=== PATIENT | male | born 1995 | race Caucasian/White ===

== ENCOUNTER 2022-02-14 13:09 | Emergency (ER) | payer BC, SELFPAY ==
--- NOTE | ~2022-02-14 | XR_ITS ---
EXAMINATION: XR chest 2V 02/14/2022 13:24 INDICATION: Chest pain PROCEDURE: 2 view chest COMPARISON: 09/28/2008 FINDINGS: The lungs are clear. The cardiomediastinal silhouette is within normal limits. There are no pleural effusions. There is no pneumothorax suspected. IMPRESSION: 1: NO ACUTE CARDIOPULMONARY DISEASE. Reviewed, dictated and finalized at location A.
--- NOTE | ~2022-02-14 | XR_ITS ---
EXAM: XR thoracic spine 3V DATE: 02/14/2022 16:48 HISTORY: BACK PAIN, NO KNOWN INJURY BUT THINKS FROM WRESTLING . COMPARISON: None available. FINDINGS: Vertebral body alignment intact. Vertebral body heights preserved. No disc space narrowing . No traumatic malalignment or fracture. Visualized lung parenchyma is clear. IMPRESSION: Normal thoracic spine radiograph findings. Reviewed, dictated and finalized at location K.
[2022-02-14 13:12] VITALS: BP 120/76; PULSE 73; RESP 18; TEMP 36.7; O2SAT 100
--- NOTE | 2022-02-14 13:14 | ECG_ITS ---
Measurements Intervals [place] Rate: 72 P: 83 ME: 144 QRS: 95 QRSD: 94 T: 69 QT: 368 QTc: 405 Interpretive Statements SINUS RHYTHM BORDERLINE RIGHT AXIS DEVIATION PATTERN CONSISTENT WITH PULMONARY DISEASE BORDERLINE ECG NO PREVIOUS ECG AVAILABLE FOR COMPARISON Electronically Signed On 02-14-2022 14:20:34 CDT by Edil Layton M.D.
[2022-02-14 13:43] LABS: Alanine Aminotransferase 14 U/L (6-50); Albumin Level 4.6 g/dL (3.5-5.1); Alkaline Phosphatase 63 U/L (38-126); Anion Gap 10 mmol/L (8-16); Aspartate Amino Transferase 26 U/L (17-59); Bilirubin,Total 0.8 mg/dL (0.2-1.3); Blood Urea Nitrogen 13 mg/dL (9-20); Calcium 9.5 mg/dL (8.4-10.2); Carbon Dioxide 28 mmol/L (22-30); Chloride 99 mmol/L (98-107); Estimated CRCL calculation 95 ml/min; Estimated Glomerular Filt Rate > 60; Glucose 83 mg/dL (65-110); Lipase 59 U/L (23-300); Potassium 3.7 mmol/L (3.4-5.0); Sodium 137 mmol/L (137-145)
[2022-02-14 13:49] LABS: INR 1.1
[2022-02-14 13:50] LABS: Partial Thromboplastin Time 30.7 SECONDS (22.3-36.8)
[2022-02-14 13:54] LABS: Troponin I < 0.012 ng/mL (0.000-0.034)
[2022-02-14 14:03] LABS: Basophils Percent Auto 0.5 % (0.2-1.2); Eosinophils Absolute Auto 0.3 K/mm3 (0-0.3); Hematocrit 42.9 % (42.0-52.0); Hemoglobin 14.9 g/dL (14.0-18.0); Immature Granulocyte Absolute 0.03 K/mm3 (0.00-0.031); Immature Granulocyte Percent A 0.4 % (0-0.5); Lymphocytes Percent Auto 20.6 % (18.3-44.2); Mean Corpuscular HGB Conc 34.7 g/dl (32-36); Mean Corpuscular Hemoglobin 30.3 pg (26-34); Mean Corpuscular Volume 87.2 fl (80-100); Mean Platelet Volume 10.7 fl (7.4-10.4); Monocytes Absolute Auto 0.6 K/mm3 (0.1-0.6); Monocytes Percent Auto 7.5 % (2.6-8.5); Neutrophils Absolute Auto 5.5 K/mm3 (1.3-6.7); Platelet Count Result 271 k/mm3 (150-375); Red Blood Count 4.92 M/mm3 (4.6-6.20); Red Cell Distribution Width 12.4 % (11.5-14.5); White Blood Count 8.3 K/mm3 (4.5-10.0)
--- NOTE | 2022-02-14 16:26 | ED.CHESTPAIN ---
HPI - Chest Pain General Chief Complaint: Chest Pain Stated Complaint: shoulder and chest pain Time Seen by Provider: 02/14/22 16:16 Source: patient Mode of arrival: ambulatory Limitations: no limitations History of Present Illness HPI narrative: This is a 26 year old male that presents to the ER for chest pain and back pain present over the last couple of weeks. Reports the pain is worse with movement and relieved with rest. He has been taking ibuprofen at home with some relief. Denies any certain injury or trauma. 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 Denies decreased range of motion, numbness, or shortness of breath. Related Data Allergies Allergy/AdvReac Type Severity Reaction Status Date / Time No Known Allergies Allergy Unverified 09/02/17 01:05 Review of Systems Review of Systems: CONSTITUTIONAL: Denies fever CARDIOVASCULAR: Reports chest pain. Denies edema. RESPIRATORY: Denies dyspnea. All systems reviewed & are unremarkable except as noted in HPI and below PMFSH Past Medical History Medical History (Updated 02/14/22 @ 17:49 by Alisson Hallman PA-C) No active medical problems Family History Family History (Updated 03/13/14 @ 07:13 by DOCTOR UNKNOWN) Mother Hypertension Sibling Asthma Social History Social History Smoking status: Never smoker Alcohol intake: never Exam Narrative: GENERAL: Well-appearing, well-nourished, and in no acute distress. HEAD: Normocephalic, atraumatic. EYES: EOMI. CHEST: Clear to auscultation. No respiratory distress. No wheezes rales or rhonchi. Tender to palpation of the anterior chest wall HEART: Regular rate and rhythm. No murmur heard. Normal peripheral pulses. BACK: Tenderness to palpation of the thoracic paraspinal musculature bilaterally EXTREMITIES: Normal range of motion. No edema. SKIN: Warm, dry, no rash. NEURO: No focal deficits. Alert and oriented x3. PSYCH: Normal mood and affect Course Vital Signs Vital signs: Vital Signs Temperature 98.0 F 02/14/22 13:12 Pulse Rate 73 02/14/22 13:12 Respiratory Rate 18 02/14/22 13:12 Blood Pressure 120/76 02/14/22 13:12 Pulse Oximetry 100 02/14/22 13:12 Oxygen Delivery Room Air 02/14/22 13:12 Temperature 98.0 F 02/14/22 13:12 Pulse Rate 63 02/14/22 17:10 Respiratory Rate 16 02/14/22 17:10 Blood Pressure 128/85 02/14/22 17:10 Pulse Oximetry 100 02/14/22 17:10 Oxygen Delivery Room Air 02/14/22 13:12 MDM - Chest Pain MDM Narrative Medical decision making narrative: Patient presents to the ER for chest pain and back pain. Ongoing over the last couple of weeks. Patient's vitals are stable. He is neurovascularly intact. CBC and metabolic panel without concerning findings. Lipase is normal. Baseline and 3-hour troponin is negative. EKG without acute ST changes. D-dimer is not elevated. Chest x-ray without acute cardiopulmonary abnormality. Thoracic spine x-ray without concerning findings. Patient was updated on case findings. His heart score is a 1. He is stable and felt appropriate for further outpatient evaluation. He was given warnings to return to the ER Lab Data Attestation: I reviewed the patient's lab results. Result diagrams: 02/14/22 13:26 02/14/22 13:26 Labs: Lab Results 02/14/22 02/14/22 02/14/22 Range/Units 13:26 13:26 13:26 WBC 8.3 (4.5-10.0) K/mm3 RBC 4.92 (4.6-6.20) M/mm3 Hgb 14.9 (14.0-18.0) g/dL Hct 42.9 (42.0-52.0) % MCV 87.2 (80-100) fl MCH 30.3 (26-34) pg MCHC 34.7 (32-36) g/dl RDW 12.4 (11.5-14.5) % Plt Count 271 (150-375) k/mm3 MPV 10.7 H (7.4-10.4) fl Immature Gran % (Auto) 0.4 (0-0.5) % Neut % (Auto) 67.0 (45.5-73.1) % Lymph % (Auto) 20.6 (18.3-44.2) % [place] % (Auto) 7.5 (2.6-8.5) % Eos % (Auto) 4.0 (0-4.4) % Baso % (Auto) 0.5 (0.2-1.2) % Lymph # (Auto) 1.70 (0.9-3.2) K/mm3 [place]
[2022-02-14 16:57] LABS: Troponin I < 0.012 ng/mL (0.000-0.034)
[2022-02-14 16:57] LABS: D Dimer < 0.27 ug/mL (<0.48)
[2022-02-14 17:10] VITALS: BP 128/85; PULSE 63; RESP 16; O2SAT 100
[2022-02-14] MEDS: diazePAM INJ (*CRX) 10 MG/2 ML SYRINGE 5 MG IV PUSH (17:12)
[2022-02-14 17:35] VITALS: TEMP 36.7
[2022-02-14 18:18] VITALS: BP 123/80; PULSE 56; RESP 18; O2SAT 100
== END 2022-02-14 18:20 | disposition home or self-care (01) ==
PROVIDERS: Physician Assistant; Emergency Provider Emergency Medicine
DX: R07.9 Chest pain, unspecified (principal); R94.31 Abnormal electrocardiogram [ECG] [EKG]
CPT/HCPCS: 36415; 71046; 72072; 80053; 83690; 84484; 85025; 85380; 85610; 85730; 93005; 96374; 96375; 99284; J0131; J3360

== ENCOUNTER 2024-10-07 15:08 | Emergency (ER) | payer OTHER, SELFPAY ==
--- NOTE | ~2024-10-07 | XR_ITS ---
XR shoulder RT min 2V Ordering provider: GABRIELA Degroot History: . fall 2 days ago. Pain to distal clav, ant shoulder . Comparison: None. FINDINGS: BONES: No acute fracture or dislocation. JOINT SPACES: The acromioclavicular joint is normal. The glenohumeral joint is normal. SOFT TISSUES: Normal. IMPRESSION: No acute osseous abnormality right shoulder. Reviewed, dictated and finalized at location A.
[2024-10-07 15:20] VITALS: BP 127/82; PULSE 62; RESP 20; TEMP 37.1; O2SAT 100
--- NOTE | 2024-10-07 15:45 | ED.UPPEXIN ---
HPI - Extremity Injury (Upper) General Chief Complaint: Extremity Injury, Upper Stated Complaint: right shoulder pain Time Seen by Provider: 10/07/24 15:38 Source: patient and RN notes reviewed Mode of arrival: ambulatory Limitations: no limitations History of Present Illness HPI narrative: Patient presents today complaining of a 2 day history of right anterior rib pain. 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 Denies numbness or tingling in the arm or hand. Pain increases with movement. He has been taking ibuprofen and applying Biofreeze without much relief. Currently rates his pain 01/23. Related Data Home Medications ?Medication ?Instructions ?Recorded ?Confirmed ?Last Taken ?Type ibuprofen 800 mg tablet mg 10/07/24 Unknown History Allergies Allergy/AdvReac Type Severity Reaction Status Date / Time No Known Allergies Allergy Unverified 10/07/24 15:32 Review of Systems Review of Systems: CONSTITUTIONAL: Denies body aches, fever, chills, or sweats. EYES: Denies visual changes, redness, or discharge. ENT: Denies rhinorrhea, congestion, sore throat, or otalgia. CARDIOVASCULAR: Denies chest pain, palpitations, or edema. RESPIRATORY: Denies cough or dyspnea. GASTROINTESTINAL: Denies abdominal pain, nausea, vomiting, or diarrhea. GENITOURINARY: Denies dysuria or hematuria. SKIN: Denies rash, itching, or wounds. MUSCULOSKELETAL: + right shoulder pain. NEUROLOGIC: Denies headache, numbness, tingling, or weakness. PSYCH: Denies depression or anxiety. [facility] Past Medical History Medical History No active medical problems Family History Family History Mother Hypertension Sibling Asthma Social History Social History Smoking status: Never smoker Alcohol intake: never Comments At time of signature, I have reviewed and agree with nursing past medical, surgical, social and family history unless otherwise noted. Please see nursing chart for further information. There is no relevant family history pertinent to the presenting complaint Exam Narrative: GENERAL: Well-appearing, well-nourished, and in no acute distress. HEAD: Normocephalic, atraumatic. EYES: EOMI. No redness or drainage. Conjunctivae normal. ENT: Mucous membranes pink and moist. NECK: Normal AROM. CHEST: No respiratory distress. EXTREMITIES: Right shoulder: Tenderness to the anterior shoulder that extends to the lateral clavicle. No deformity noted. Decreased range of motion up to approximately 90? due to pain. Pain with internal and external rotation as well. Distal sensation intact. Capillary refill normal. Radial pulse normal. SKIN: Warm, dry, no rash. Capillary refill normal. Normal skin turgor. NEURO: No focal deficits. Alert and oriented x3. Gait steady. PSYCH: Normal affect. No signs of depression or anxiety. Course Course Level of Care: Express Care Visit Vital Signs Vital signs: Vital Signs Temperature 98.7 F 10/07/24 15:20 Pulse Rate 62 10/07/24 15:20 Respiratory Rate 20 10/07/24 15:20 Blood Pressure 127/82 10/07/24 15:20 Pulse Oximetry 100 10/07/24 15:20 Oxygen Delivery Room Air 10/07/24 15:20 Temperature 98.7 F 10/07/24 15:20 Pulse Rate 62 10/07/24 15:20 Respiratory Rate 20 10/07/24 15:20 Blood Pressure 127/82 10/07/24 15:20 Pulse Oximetry 100 10/07/24 15:20 Oxygen Delivery Room Air 10/07/24 15:20 Reviewed MDM - Extremity Injury (Upper) MDM Narrative Medical decision making narrative: X-ray is negative. Recommend orthopedic follow-up for further evaluation and treatment if pain persists after 1 week of conservative treatment. Patient agrees with plan. Anticipatory guidance given. Differential Diagnosis Differential diagnosis: Likely fracture of humerus, fracture of clavicle and other (Rotator cuff tear, shoulder strain) Imaging Data Radiologist's impression: ITS Impressions Shoulder X-Ray 10/07/24 15:51 IMPRESSION: No acute osseous abnormality right shoulder. Critical Care Time Critical Care Time Critical Care Time: No Discharge Plan Discharge Clinical Impression: Injury of right shoulder Qualifiers: Encounter type: initial encounter Qualified Code(s): S49.91XA - Unspecified injury of right shoulder and upper arm, initial encounter Patient Disposition: Home, Self-Care Condition: Stable Instructions: Shoulder Sprain (ED) Additional Instructions: Your x-ray is negative today. Take ibuprofen or Tylenol for pain. Gently move the shoulder to keep range of motion. If your symptoms persist past 1 week, please follow-up with orthopedics for further evaluation and treatment. Your blood pressure was elevated above 120/80 today at Urgent Care. This puts you above the threshold for follow up. Please schedule a followup visit with your personal physician as soon as possible, for further evaluation and treatment. Even blood pressure exceeding 120/80 may indicate pre-hypertension. Patient Language: [place] Islander Prescriptions: No Action ibuprofen 800 mg tablet Follow-up/Referrals: Gil Jasso MD [Physician] - PHYSICIAN,BIOMEDICAL TECHNICIAN [Primary Care Provider] - Time of Disposition: 16:16
== END 2024-10-07 16:19 | disposition home or self-care (01) ==
PROVIDERS: Emergency Provider Nurse Practitioner
DX: S49.91XA Unspecified injury of right shoulder and upper arm, initial encounter (principal); W03.XXXA Other fall on same level due to collision with another person, initial encounter; Y93.72 Activity, wrestling
CPT/HCPCS: 73030; 99213; G0463

== ENCOUNTER 2025-07-16 14:39 | Emergency (ER) | payer OTHER, SELFPAY ==
--- NOTE | ~2025-07-16 | CT_ITS ---
EXAMINATION: CT diagnostic chest wo con DATE: 07/16/2025 16:22 INDICATION: R rib pain x1week s/p hit with concrete TECHNIQUE: Computed tomography (CT) of the chest was performed without intravenous contrast. Additional 3D reconstructions utilizing coronal maximum intensity projection (MIP) were performed. Automated exposure control and iterative reconstruction technique were employed. The dose-length product was 19 4.59 mGy-cm. COMPARISON: Right rib pain post trauma one week prior FINDINGS: Lungs are clear with pneumonia, pulmonary edema or other pulmonary infiltrates. No pleural effusion or pneumothorax. Heart size is normal. No pericardial effusion. Thoracic aorta is normal in caliber. No pathologically enlarged thoracic lymphadenopathy. Visualized upper abdomen is unremarkable. 10 degrees thoracic dextrocurvature with mild spondylosis. No rib fractures or other acute osseous abnormality. IMPRESSION: 1. No fracture or acute cardiopulmonary disease. Reviewed, dictated and finalized at location A. ENSATION COORDINATOR
--- OUTSIDE RECORDS SUMMARY | 2025-07-16 14:40 | XMS_ITS | Clinical Summary ---
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 Gender Identity Not on file Sexual Orientation Not on file Plan of Treatment Health Maintenance Due Date Last Done Comments Hepatitis C Virus (HCV) Screening 1996 Influenza Immunization (#1) 2025 04/25/2012 SARS-COV-2 Immunization ( season) 2025 03/27/2021, 03/06/2021 Respiratory Syncytial Virus (RSV) Immunization (Adult) (1 - 1-dose 75+ series) 2071 Hepatitis B Immunization Completed 997, 1996, 1996 DTaP/Tdap/Td Immunization Discontinued 2010, 03/09/2009, 11/30/2000, Additional history exists TdaP Immunization Completed 02/28/2011, 03/09/2009 Human Papillomavirus (HPV) Immunization Completed 04/25/2012, 02/28/2011 Meningococcal Immunization (ACWY) Completed 01/27/2015, 03/09/2009 Pneumococcal Immunization Combined Aged Out No longer eligible based on patient's age to complete this topic Rotavirus Immunization Aged Out No lo nger eligible based on patient's age to complete this topic [place] [address]
[2025-07-16 14:46] VITALS: BP 142/92; PULSE 86; RESP 18; TEMP 36.5; O2SAT 100
--- OUTSIDE RECORDS SUMMARY | 2025-07-16 16:42 | XMS_ITS | Clinical Summary ---
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
--- NOTE | 2025-07-16 17:07 | ED_ITS ---
HPI - General Adult General Chief complaint: Unspecified Stated complaint: R rib pain Time Seen by Provider: 07/16/25 17:06 Source: patient Mode of arrival: ambulatory Limitations: no limitations History of Present Illness HPI narrative: Patient is a 30-year-old male who presents the ED with report of right-sided rib pain. Patient reports he was working last week and hit his right-sided anterior ribs against a concrete structure. Complains of pain throughout his right anterior ribs since then. Worse with movement, coughing, sneezing. Has occasionally been taking Tylenol for the pain. Denies feeling short of breath, but does have pain with deep inspiration. Denies abdominal pain Related Data Home Medications ?Medication ?Instructions ?Recorded ?Confirmed ?Last Taken ?Type ibuprofen 800 mg tablet mg 10/07/24 Unknown History Allergies Allergy/AdvReac Type Severity Reaction Status Date / Time No Known Allergies Allergy Verified 07/16/25 14:48 Review of Systems Review of Systems: All systems reviewed & are unremarkable except as noted in HPI. All systems reviewed & are unremarkable except as noted in HPI and below PMFSH Past Medical History Medical History No active medical problems Family History Family History Mother Hypertension Sibling Asthma Social History Social History Smoking status: Never smoker Alcohol intake: never Exam Narrative: GENERAL: Well appearing, thin, non-toxic, in no acute distress. HEAD: Normocephalic, atraumatic. RESPIRATORY: Airway patent, respirations nonlabored. Clear to auscultation bilaterally, no rales, rhonchi, wheezing. CARDIOVASCULAR: Regular rate and rhythm without murmurs, rubs, or gallops. ABDOMINAL: Soft, no significant focal tenderness, nondistended. Normoactive BS. MUSCULOSKELETAL: Moves all extremities. No gross deformities. TTP throughout R inferior anterior chest wall w/o ecchymosis, palpable deformities. SKIN: Warm, dry, normal color. NEURO: A&O X3. Speech clear. No ataxic movements. PSYCHIATRIC: Appropriate mood and affect. Normal interaction. Course Vital Signs Vital signs: Vital Signs Temperature 97.7 F 07/16/25 14:46 Pulse Rate 86 07/16/25 14:46 Respiratory Rate 18 07/16/25 14:46 Blood Pressure 142/92 H 07/16/25 14:46 Pulse Oximetry 100 07/16/25 14:46 Oxygen Delivery Room Air 07/16/25 14:46 Temperature 97.7 F 07/16/25 14:46 Pulse Rate 86 07/16/25 14:46 Respiratory Rate 18 07/16/25 14:46 Blood Pressure 142/92 H 07/16/25 14:46 Pulse Oximetry 100 07/16/25 14:46 Oxygen Delivery Room Air 07/16/25 14:46 MDM MDM Narrative Medical decision making narrative: Patient presented to ED with 1 week history of right sided rib pain after hitting against a concrete structure. Vital signs are stable upon arrival. Ox ygen stable on room air. Patient reports pain with inspiration, but denies significant shortness of breath. CT of chest was obtained and without evidence of rib fracture, pneumonia, pleural injury. Discussed imaging findings with patient, diagnosis of rib contusion. Educated on incentive spirometer use, will prescribe short course of pain medication and lidocaine patches for home use. Recommended follow-up with PCP. Given return precautions. Discharged in stable condition. Differential Diagnosis Differential Diagnosis: Rib fracture, rib contusion, pneumonia, sternal fracture Medical Records I have reviewed the following patient records and this information was taken into consideration when formulating the assessment and plan.: previous labs, previous ER visits, previous hospitalizations and previous clinic visits Imaging Data Attestation: I personally reviewed and interpreted this imaging study as follows: Radiologist's impression: ITS Impressions Chest CT 07/16/25 16:30 IMPRESSION: 1. No fracture or acute cardiopulmonary disease. Discharge Plan Discharge Clinical Impression: Contusion of rib on right side Qualifiers: Encounter type: initial encounter Qualified Code(s): S29.8XXA - Other specified injuries of thorax, initial encounter Patient Disposition: Home Condition: Stable Instructions: Antibiotic Form, Rib Contusion (ED) Additional Instructions: Continue Tylenol and Ibuprofen as needed for pain. You can take 1000 mg of Tylenol and 600 mg of ibuprofen every 6 hours. You may use ice/heat, lidocaine patches to area of pain. Utilize [place] as needed for more severe pain. Do not drive, operate heavy machinery, drink alcohol while on muscle relaxers as this may cause further sedation. Utilize incentive spirometer several times throughout the day to encourage deep breathing. Follow-up with your primary care doctor for further evaluation if needed. Return to the ED if you experience worsening or severe pain, recurrent injury, difficulty breathing, coughing blood, unable to keep down food or drink, or any other symptoms of concern. Patient Language: Yakut Prescriptions: New hydrocodone-acetaminophen 5-325 mg tablet 1 tablet PO Q6H PRN (Reason: pain) Qty: 10 0RF lidocaine 5 % adhesive patch,medicated 1 patch topical DAILY Qty: 15 0RF Rx Instructions: leave on most painful area for up to 12 hrs No Action ibuprofen 800 mg tablet Follow-up/Referrals: PHYSICIAN,MANUFACTURING QUALITY TECHNICIAN [Primary Care Provider, Internal Medicine] Fabrizio Maolne MD [Physician, Family Practice] Time of Disposition: 17:12
[2025-07-16] MEDS: LIDOCAINE 5% PATCH 1 PATCH TRANSDERM (17:19)
[2025-07-16] MEDS: HYDROcodone/acetaminophen (*CRX) 5-325 MG TABLET 1 TAB PO (17:19)
== END 2025-07-16 17:30 | disposition home or self-care (01) ==
PROVIDERS: Emergency Provider Physician Assistant
DX: S20.211A Contusion of right front wall of thorax, initial encounter (principal); W22.01XA Walked into wall, initial encounter
CPT/HCPCS: 71250; 99284; A9270